=== PATIENT | female | born 1985 | race Caucasian/White ===

== ENCOUNTER 2018-01-26 22:07 | Emergency (ER) | payer SELFPAY ==
[2018-01-26] MEDS ORDERED: HYDROCODONE/APAP 5/325 MG TAB ONE (23:09)
[2018-01-26] MEDS ORDERED: TETANUS & DIPHTHERIA TOX,ADULT 0.5 ML VIAL ONE (23:10)
[2018-01-26] MEDS ORDERED: LIDOCAINE 1% W/EPI 1:100,000 MDV 50 ML VIAL ONE (23:10)
[2018-01-26 23:12] LABS: Urine Blood 2+ (NEG); Urine Glucose NEGATIVE (NEG); Urine Protein NEGATIVE (NEG)
[2018-01-27] MEDS ORDERED: ONDANSETRON 4 MG/2 ML VIAL ONE (00:08)
[2018-01-27] MEDS ORDERED: NA CHLORIDE 0.9% 1,000 ML ONE (00:08)
[2018-01-27] MEDS ORDERED: NA CHLORIDE 0.9% 100 ML IV ONE (00:08)
[2018-01-27] MEDS ORDERED: CEFAZOLIN SODIUM 1 GM/VIAL ONE (00:08)
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
== END 2018-01-27 01:54 | disposition short-term general hospital (02) ==
LOC: ER 22:07
PROC: 0JQ10ZZ Repair Face Subcutaneous Tissue and Fascia, Open Approach (ICD-10-PCS; principal; 2018-01-27)
DX: S02.32XA Fracture of orbital floor, left side, initial encounter for closed fracture (principal); S02.2XXA Fracture of nasal bones, initial encounter for closed fracture; S01.81XA Laceration without foreign body of other part of head, initial encounter; S02.82XA Fracture of other specified skull and facial bones, left side, initial encounter for closed fracture; Y04.8XXA Assault by other bodily force, initial encounter; Y93.89 Activity, other specified; Y92.89 Other specified places as the place of occurrence of the external cause; Z23 Encounter for immunization; Z72.0 Tobacco use; F41.9 Anxiety disorder, unspecified
CPT/HCPCS: 70450; 70486; 72125; 76377; 81003; 81025; 90714; 96374; 96375; 99285; J0690; J2405; J7030